=== PATIENT | female | born 1970 | race Caucasian/White ===

== ENCOUNTER 2018-12-27 20:48 | Emergency (ER) | payer OTHER ==
[2018-12-27 21:00] VITALS: BP 110/69
--- NOTE | 2018-12-27 21:47 | ED Physician Documentation ---
PD HPI UPPER EXT INJURY - Stated complaint Stated Complaint: R THUMB INJ - Chief complaint Chief Complaint: Trauma Ext - History obtained from History obtained from: Patient, Family - History of Present Illness Location: Right, Finger (thumb) Type of injury: Fall Where injury occurred: Home Timing - onset: How many days ago (2) Timing - duration: Days (2) Timing - details: Abrupt onset, Still present Improved by: Rest, Ice, Immobilization Worsened by: Moving, Palpating Associated symptoms: No: Weakness, Numbness, Tingling, Swelling Contributing factors: No: Anticoagulated Similar symptoms before: Has not had sx before Recently seen: Not recently seen - Additonal information Additional information: 48-year-old female returned from a trip and she had her suitcase opened in her room she got up in the middle of the night to go to the bathroom she tripped over the suitcase and landed with her thumb in the same of the suitcase. She has a significant amount of pain to the thumb with reduced movement and some mild swelling and this is persisted now and is worsening. Review of Systems Constitutional: denies: Fever Eyes: denies: Decreased vision Ears: denies: Ear pain Nose: denies: Congestion Throat: denies: Sore throat Cardiac: denies: Chest pain / pressure Respiratory: denies: Dyspnea, Cough GI: denies: Abdominal Pain, Abdominal Swelling, Nausea, Vomiting : denies: Dysuria, Frequency Skin: denies: Rash Musculoskeletal: denies: Neck pain, Back pain, Extremity pain Neurologic: denies: Generalized weakness, Focal weakness, Numbness PD PAST MEDICAL HISTORY - Past Medical History Past Medical History: No Cardiovascular: Other Other Past Medical History: Atrial septal defect - Past Surgical History Past Surgical History: Yes Cardiovascular: Vascular surgery HEENT: Tonsil/Adenoidectomy - Present Medications Home Medications: Ambulatory Orders Medication Instructions Recorded Confirmed Loratadine [Claritin] 10 mg PO DAILY 12/27/18 12/27/18 - Allergies Allergies/Adverse Reactions: Allergies Allergy/AdvReac Type Severity Reaction Status Date / Time Penicillins Allergy Unknown Verified 12/27/18 20:58 acetaminophen AdvReac Dizziness Verified 12/27/18 20:58 [From Sudafed PE Cold and Cough] dextromethorphan AdvReac Dizziness Verified 12/27/18 20:58 [From Sudafed PE Cold and Cough] diphenhydramine AdvReac Dizziness Verified 12/27/18 20:58 [From Benadryl] guaifenesin AdvReac Dizziness Verified 12/27/18 20:58 [From Sudafed PE Cold and Cough] phenylephrine AdvReac Dizziness Verified 12/27/18 20:58 [From Sudafed PE Cold and Cough] - Social History Does the pt smoke?: No Smoking Status: Never smoker Does the pt drink ETOH?: No Does the pt have substance abuse?: No - Immunizations Immunizations are current?: Yes - POLST Patient has POLST: No PD ED PE NORMAL - Vitals Vital signs reviewed: Yes (normal ) - General General: Alert and oriented X 3, No acute distress, Well developed/nourished - HEENT HEENT: Atraumatic, PERRL, EOMI - Respiratory Respiratory: No respiratory distress - Derm Derm: Normal color, Warm and dry, No rash - Extremities Extremities: No deformity, Normal ROM s pain, No edema, Other (tenderness to palpation over the DIP and MCP joints of the thumb with retained ROM and retained distal n/v. 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, No motor deficit, No sensory deficit, Normal speech Eye Opening: Spontaneous Motor: Obeys Commands Verbal: Oriented GCS Score: 15 - Psych Psych: Normal mood, Normal affect Results - Vitals Vitals: Vital Signs - 24 hr 12/27/18 20:51 Temperature 36.3 C L Heart Rate 66 Respiratory 16 Rate Blood Pressure 110/69 O2 Saturation 100 Oxygen O2 Source Room air - Rads (name of study) thumb Radiology: Prelim report reviewed (Pression: Normal digit radiography.), EMP read indepedently, See rad report Procedures - Splint (location) right thumb Splint applied by: Tech Type of splint: Fiberglass, Thumb spica Other: Patient tolerated well, No complications, Neurovascular intact, Good alignment PD MEDICAL DECISION MAKING - ED course Complexity details: considered differential, d/w patient, d/w family ED course: 48-year-old female visiting from out of town has fallen sprained her right thumb and she is placed into a fiberglass thumb spica. Departure - Departure Disposition: 01 Home, Self Care Clinical Impression: Thumb sprain Qualifiers: Encounter type: initial encounter Sprain of finger site: metacarpophalangeal joint Laterality: right Qualified Code(s): S63.641A - Sprain of metacarpophalangeal joint of right thumb, initial encounter Instructions: ED Sprain Finger Follow-Up: Your, doctor [Other]
--- NOTE | 2018-12-27 21:59 | XRAY Report ---
Reason: fall thumb injury Procedure Date: 12/27/2018 Accession Number: [id number] / [id number] Procedure: XR - Finger(s) RT CPT Code: FULL RESULT: EXAM: RIGHT THUMB DIGIT RADIOGRAPHY EXAM DATE: 12/27/2018 08:57 PM. CLINICAL HISTORY: Fall thumb injury. COMPARISON: None. TECHNIQUE: 3 views. FINDINGS: Bones: Normal. No fracture or bone lesion. Joints: Normal. No subluxations. Soft Tissues: Normal. No soft tissue swelling. IMPRESSION: Normal digit radiography. [facility]
== END 2018-12-27 22:35 | disposition home or self-care (01) ==
LOC: ED 20:48
DX: S63.641A Sprain of metacarpophalangeal joint of right thumb, initial encounter (principal); W01.0XXA Fall on same level from slipping, tripping and stumbling without subsequent striking against object, initial encounter; Y93.01 Activity, walking, marching and hiking; Y92.003 Bedroom of unspecified non-institutional (private) residence as the place of occurrence of the external cause
CPT/HCPCS: 73140; 99282; 99283